=== PATIENT | female | born 1945 ===

== ENCOUNTER → 2018-03-07 | Day surgery (SDC) | payer BC ==
[2018-02-14 10:25] VITALS: Ht 165.1 cm; Wt 93.2 kg
[~2018-03-07] VITALS: Ht 165.1 cm; Wt 93.2 kg
[~2018-03-07] MED LIST: 500ML BSS 0.3ML EPI 1:1000PF IRRIG ONE; ACETAMINOPHEN 325 MG TAB PO PRN; AMVISC PLUS 0.8ML SYRINGE INT OCU ONE; ASPCH81X PO; ATROPINE SULFATE 0.1 MG/ML 5ML SYR IV PRN; BSS FLUSH ONE; EpHEDrine SULFATE INJ 50 MG/ML AMP IV PRN; EpINEphrine INJ 1MG/ML AMP 1 MG/ML AMP ONE; FENTANYL CITRATE INJ 50 MCG/1 ML 2 ML VIAL IV PRN; FLUMAZENIL 0.1 MG/1 ML 10 ML VIAL IV PRN; HYDROmorphone INJ 2 MG/ML SYR/VIAL IV PRN; LABETALOL HCL IV 5 MG/ML 20ML IV PRN; LACTATED RINGER'S 1000ML 500 ML IV SCH; LIDOCAINE 3.5% OPH GEL PER APPLICATION CHARGE ONE; LIDOCAINE HCL 1% MPF 2 ML VIAL ONE; MAGN250T3 PO; MEPERIDINE HCL 25 MG/ML CARP IV PRN; MIDAZOLAM HCL 1 MG/ML 2ML VIAL ONE; MULTTAB58 PO; NALOXONE HCL 0.4 MG/1 ML VIAL/CARP IV PRN; OCUCOAT 1 ML SOLN IO ONE; OMEG10007 PO; ONDANSETRON INJ 2 MG/ML 2 ML VIAL IV PRN; PHENYLEPHRINE 100MCG/ML 5ML SYR IV PRN; POVIDONE-IODINE OP SOLN 30 ML BTL ONE; PRAV40TA PO; PRLSR20 PO; PROPARACAINE 0.5% OP SOLN PER DROP CHARGE OPR SCH; TOBRAMYCIN/DEXAMETHASONE OPH OINT PER APPLN CHARGE ONE; VALS160T58 PO
[2018-03-07] MEDS: PHENYLEPHRINE HCL 2.5% OP SOLN PER DROP CHARGE OPR SCH ×2 (10:52→10:57)
[2018-03-07] MEDS: TROPICAMIDE 1% OP SOLN PER DROP CHARGE OPR SCH ×2 (10:53→10:58)
[2018-03-07] MEDS: CYCLOPENTOLATE HCL 1% OP SOLN PER DROP CHARGE OPR SCH ×2 (10:54→10:59)
[2018-03-07] MEDS: KETOROLAC 0.5% OP SOLN PER DROP CHARGE OPR SCH ×2 (10:55→11:00)
[2018-03-07] MEDS: GATIFLOXACIN OP SOLN PER DROP CHARGE OPR SCH ×2 (10:56→11:06)
--- NOTE | 2018-03-07 11:01 | History & Physical Bridge - [place] ---
H&P Re-Evaluation Bridge Note: I have examined the patient, reviewed the History & Physical and in the interval since the performance of the History & Physical I have noted the following changes of clinical significance: No changes noted
--- NOTE | 2018-03-07 11:30 | [facility] Operative Report ---
Operative Report Date of Service March 07, 2018. Operative Report 1. PREOPERATIVE DIAGNOSIS: Cataract of the right eye. 2. POSTOPERATIVE DIAGNOSIS: Same. 3. PROCEDURE: Phacoemulsification with intraocular lens implantation of the right eye. SURGEON: Dr. Truman Swann. ANESTHESIA: Topical Lidocaine gel, 1% Non- Preserved intracameral Lidocaine, and monitored intravenous sedation. INDICATIONS FOR THE PROCEDURE: The patient is a 72 - year-old female with a history of cataract of the right eye causing significant visual impairment. The details of the proposed procedure were explained to the patient who asked appropriate questions and following discussion of all risks, benefits and alternatives agreed to have the procedure done. 4. OPERATION AND FINDINGS: DESCRIPTION OF PROCEDURE: After informed consent was obtained, the patient was brought to the Operating Room at the [facility]. The patient was placed in a supine position and then the right eye was prepped and draped in the usual sterile fashion for intraocular surgery. A drop of topical Lidocaine gel was placed in the operative eye. A wire lid speculum was then placed in the fornices. A corneal paracentesis was then created temporally. The Non-Preserved Lidocaine was then instilled into the anterior chamber. The anterior chamber was then pressurized with viscoelastic. A 2.0 mm clear corneal incision was then created temporally. A cystotome was inserted into the anterior chamber and used to create a tear in the anterior lens capsule. This capsular tear was then used to create a small flap and the flap was dragged in a counterclockwise direction in order to create a continuous curvilinear capsulorrhexis. Hydrodissection was accomplished with balanced salt solution. Phacoemulsification of the lens nucleus was then performed in a standard rlomoj-orq-[id number] technique. The phaco time was 18 seconds with an average power of 9 %. The remaining cortical material was removed using irrigation aspiration. The capsular bag was then filled with viscoelastic. A B[employer]ch [employer] Lomb MI60L +22.0 diopters lens was then loaded into the injector and injected into the capsular bag. The remaining viscoelastic was removed with the irrigation aspiration handpiece. The wound was hydrated and then checked and found to be watertight. The intraocular pressure was checked and found to be adequate. The wire lid speculum was removed and the patient's face was cleaned and dried. TobraDex ointment was placed in the inferior fornix. The patient was discharged to the Recovery Room having tolerated the procedure well. There were no complications. The patient will be seen tomorrow in the office for follow-up. I attest to the content of the Intraoperative Record and any orders documented therein. Any exceptions are noted below.
--- NOTE | 2018-03-07 11:31 | Discharge Instructions-SurgCtr ---
Discharge Instructions Date of Service March 07, 2018. Visit Reason for Visit: Cataract Right Eye Discharge Discharge Diagnosis / Problem: cataract Discharge Goals Goal(s): Improve function Activity Recommendations Activity Limitations: per Instructions/Follow-up section Anesthesia . Post Anesthesia Instructions: If you have had General Anesthesia or IV Sedation: * Do not drive today. * Resume driving when surgeon permits. * Do not make important decisions or sign legal documents today. * Call surgeon for: 1. Temperature elevations greater than 101 degrees F. 2. Uncontrollable pain. 3. Excessive bleeding. 4. Persistent nausea and vomiting. 5. Medication intolerance (nausea, vomiting or rash). * For nausea and vomiting use only clear liquids such as: tea, soda, bouillon until nausea subsides, then gradually increase diet as tolerated. * If you have any concerns or questions, call your surgeon's office. If physician is unavailable and it is an emergency, call 911 or go to the nearest emergency room. . Diet Recommendations Home Diet: resume previous diet Procedures Procedures Performed: Right Cataract Phacoemulsification With Intraocular Lens Implant Pending Studies Studies pending at discharge: no Medical Emergencies . Who to Call and When: Medical Emergencies: If at any time you feel your situation is an emergency, please call 911 immediately. . Non-Emergent Contact Non-Emergency issues call your: Tax Technician . . "Provider Documentation" section prepared by Truman Swann. .
--- NOTE | 2018-03-07 11:48 | Anesthesia Progress Nt - [facility] ---
Anesthesia Post Op Note Date & Time March 07, 2018 at 11:48 Vital Signs Pain Intensity: 0 Vital Signs Past 12 Hours Date Time Temp Pulse Resp B/P (MAP) Pulse Ox O2 Delivery O2 Flow Rate FiO2 03/07/18 11:33 36.4 80 16 127/81 (96) 97 Room Air 03/07/18 10:44 36.6 90 152/94 (113) 97 Room Air Notes Mental Status: alert / awake / arousable, participated in evaluation Pt Amnestic to Procedure: Yes Nausea / Vomiting: adequately controlled Pain: adequately controlled Airway Patency, RR, SpO2: stable & adequate BP & HR: stable & adequate Hydration State: stable & adequate Anesthetic Complications: no major complications apparent
[2018-03-07 11:58] VITALS: BP 131/82; PULSE 78; O2SAT 99
== END | disposition home or self-care (01) ==
LOC: X.SURG 10:34
PROVIDERS: ATTEND Ophthalmology
DX: H26.9 Unspecified cataract (principal); I10 Essential (primary) hypertension; K21.9 Gastro-esophageal reflux disease without esophagitis; M19.90 Unspecified osteoarthritis, unspecified site; E66.9 Obesity, unspecified; Z68.34 Body mass index [BMI] 34.0-34.9, adult

== ENCOUNTER 2019-04-20 06:33 | Inpatient (IN) ==
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
--- NOTE | 2019-03-26 13:32 | PAT Medication Instructions ---
Medication Instructions Date of Service March 26, 2019 Home Medications aspirin [Aspir-81] 81 mg PO QPM multivitamin 0.5 tab PO BID omega 0-lsi-jtr-fish oil [Fish Oil] 1 cap PO QAM pravastatin 40 mg PO HS valsartan-hydrochlorothiazide [Diovan HCT] 1 tab PO QAM ASK your surgeon for instructions aspirin [Aspir-81] 81 mg PO QPM STOP taking 2 weeks before surgery omega 9-rzq-yxd-fish oil [Fish Oil] 1 cap PO QAM DO NOT take the morning of surgery multivitamin 0.5 tab PO BID valsartan-hydrochlorothiazide [Diovan HCT] 1 tab PO QAM Take morning of surgery NOTHING TO EAT OR DRINK AFTER MIDNIGHT Take evening before surgery multivitamin 0.5 tab PO BID pravastatin 40 mg PO HS Other Notes If you have any questions please call us at [phone] or [phone] or [phone] or [phone]
--- NOTE | 2019-03-26 14:27 | XRay Report ---
XR chest Pre-admission PA/Lat CLINICAL HISTORY: Preoperative evaluation. COMPARISON STUDY: No previous studies for comparison. FINDINGS: The lung volumes are normal. No pneumothorax or pleural effusion is noted. There is no cons olidation or evidence for pulmonary edema. Cardiac size is normal. A moderate sized hiatal hernia is present. Otherwise, mediastinal contours are normal. IMPRESSION: 1. No acute cardiopulmonary findings. 2. Moderate sized hiatal hernia. Electronically signed by: Kleber Foss M.D. 03/26/2019 2:25 PM
[2019-03-26 14:32] LABS: Basophils # (auto) 0.02 K/uL (0-0.2); Basophils % (auto) 0.3 %; Eosinophils # (auto) 0.16 K/uL (0-0.5); Eosinophils % (auto) 2.4 %; Hematocrit (blood only) 39.1 % (37-47); Hemoglobin 13.1 g/dL (12.0-16.0); Immature Granulocytes # (auto) 0.01 K/uL (0.00-0.02); Immature Granulocytes % (auto) 0.2 %; Lymphocytes # (auto) 1.93 K/uL (1.2-3.4); Lymphocytes % (auto) 29.2 %; Mean Corpuscular Hgb Conc 33.5 g/dL (32-36); Mean Corpuscular Volume 91.8 fL (80-100); Mean Platelet Volume 9.8 fL (7.4-10.4); Monocytes # (auto) 0.55 K/uL (0.11-0.59); Monocytes % (auto) 8.3 %; Neutrophils # (auto) 3.95 K/uL (1.4-6.5); Neutrophils % (auto) 59.6 %; Platelet Count 226 K/uL (130-400); RDW Coefficient of Variation 13.6 % (11.5-14.5); RDW Standard Deviation 45.4 fL (36.4-46.3); Red Blood Count 4.26 M/uL (4.2-5.4); White Blood Count 6.62 K/uL (4.8-10.8)
[2019-03-26 14:45] LABS: Appearance Urine Clear (Clear); Bacteria Urine Automated Negative (Negative); Bilirubin Urine Negative (Negative); Blood Urine Negative (Negative); Color Urine Yellow; Glucose Urine UA Negative (Negative); Ketones Urine Negative (Negative); Leukocyte Esterase Urine Trace (Negative); Nitrite Urine Negative (Negative); Protein Urine Negative (Negative); RBC Urine Automated 0-4 /hpf (0-4); Specific Gravity Urine 1.019 (1.000-1.030); Urobilinogen Urine Negative (Negative)
[2019-03-26 14:45] LABS: Partial Thromboplastin Ratio 0.9; Partial Thromboplastin Time 25.2 Seconds (21.0-31.0); Prothrombin Time 10.6 Seconds (9.0-12.0)
[2019-03-27 06:03] LABS: Estimated Average Glucose 117 mg/dl; Hemoglobin A1C 5.7 % (4.5-5.6)
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
[~2019-04-20 06:33] MED LIST changes: -500ML BSS 0.3ML EPI 1:1000PF IRRIG ONE; -ACETAMINOPHEN 325 MG TAB PO PRN; -AMVISC PLUS 0.8ML SYRINGE INT OCU ONE; -ASPCH81X PO; -ATROPINE SULFATE 0.1 MG/ML 5ML SYR IV PRN; -BSS FLUSH ONE; +CEFAZOLIN 2000MG 2,000 MG/15 ML SYR IV SCH; -EpHEDrine SULFATE INJ 50 MG/ML AMP IV PRN; -EpINEphrine INJ 1MG/ML AMP 1 MG/ML AMP ONE; -FENTANYL CITRATE INJ 50 MCG/1 ML 2 ML VIAL IV PRN; -FLUMAZENIL 0.1 MG/1 ML 10 ML VIAL IV PRN; -HYDROmorphone INJ 2 MG/ML SYR/VIAL IV PRN; -LABETALOL HCL IV 5 MG/ML 20ML IV PRN; -LACTATED RINGER'S 1000ML 500 ML IV SCH; -LIDOCAINE 3.5% OPH GEL PER APPLICATION CHARGE ONE; -LIDOCAINE HCL 1% MPF 2 ML VIAL ONE; -MAGN250T3 PO; -MEPERIDINE HCL 25 MG/ML CARP IV PRN; -MIDAZOLAM HCL 1 MG/ML 2ML VIAL ONE; -MULTTAB58 PO; -NALOXONE HCL 0.4 MG/1 ML VIAL/CARP IV PRN; -OCUCOAT 1 ML SOLN IO ONE; -OMEG10007 PO; -ONDANSETRON INJ 2 MG/ML 2 ML VIAL IV PRN; -PHENYLEPHRINE 100MCG/ML 5ML SYR IV PRN; -POVIDONE-IODINE OP SOLN 30 ML BTL ONE; -PRAV40TA PO; -PRLSR20 PO; -PROPARACAINE 0.5% OP SOLN PER DROP CHARGE OPR SCH; +ROPIVACAINE 0.5% HCL/PF 150 MG, BUPIVACAINE 0.5% MPF 30 ML, EPINEPHrine 30MG/30ML (OR U... INFIL SCH; -TOBRAMYCIN/DEXAMETHASONE OPH OINT PER APPLN CHARGE ONE; +TRANEXAMIC ACID 1,000 MG **IV Intra-op IV SCH; +TRANEXAMIC ACID 1,000 MG **IV Pre-op IV SCH; -VALS160T58 PO
[2019-04-20] MEDS ORDERED: BUPIVACAINE 0.5 % 5 MG/1 ML PF 10ML VIAL ONE (07:30)
[2019-04-20] MEDS ORDERED: ROPIVACAINE 0.5% 5 MG/ML 30 ML VIAL ONE (07:30)
[2019-04-20] MEDS: LR 500ML BOLUS, THEN 15ML/HR IV SCH (07:38)
[2019-04-20] MEDS ORDERED: ACETAMINOPHEN 500 MG TAB ONE (07:40)
[2019-04-20] MEDS ORDERED: FAMOTIDINE 20 MG TAB ONE (07:40)
[2019-04-20] MEDS ORDERED: dexAMETHasone 4 MG TAB PO ONE (07:40)
[2019-04-20] MEDS ORDERED: METOCLOPRAMIDE HCL 10 MG TABLET ONE (07:41)
[2019-04-20] MEDS ORDERED: GABAPENTIN 300 MG CAP ONE (07:41)
[2019-04-20] MEDS ORDERED: OXYCODONE HCL 10 MG TABCR (OXYCONTIN) ONE (07:42)
[2019-04-20] MEDS ORDERED: ePHEDrine sulfate 50 MG/ML AMP IV PRN (08:43)
[2019-04-20] MEDS ORDERED: HYDROmorphone INJ 1 MG/ML SYRINGE IV PRN (08:43)
[2019-04-20] MEDS ORDERED: ATROPINE SULFATE 0.1 MG/ML 10ML SYR IV PRN (08:43)
--- NOTE | 2019-04-20 08:43 | History & Physical Bridge Note ---
Date of Service April 20, 2019 History & Physical Bridge Note I have examined the patient, reviewed the History & Physical and in the interval since the performance of the History & Physical I have noted the following changes of clinical significance: no changes noted
[2019-04-20] MEDS ORDERED: MIDAZOLAM HCL 1 MG/ML 2ML VIAL ONE (08:47)
[2019-04-20] MEDS ORDERED: BACITRACIN INJ 50,000 UNIT VIAL ONE (09:43)
[2019-04-20] MEDS ORDERED: fentaNYL citrate 100 MCG/2 ML VIAL ONE ×4 (09:44→11:28)
[2019-04-20] MEDS ORDERED: HYDROmorphone INJ 2 MG/ML SYR/VIAL ONE ×2 (10:27→11:47)
[2019-04-20] MEDS ORDERED: KETOROLAC 30 MG/ML VIAL ONE (10:28)
[2019-04-20] MEDS ORDERED: LIDOCAINE HCL 2% 2 ML VIAL/AMP(20MG/ML) INFIL ONE (10:28)
[2019-04-20] MEDS ORDERED: raNITIdine HCl 25 MG/ML VIAL IV ONE (10:28)
[2019-04-20] MEDS ORDERED: PROPOFOL IV EMULSION 10 MG/ML 20 ML VIAL IV ONE (10:28)
[2019-04-20] MEDS ORDERED: DEXAMETHASONE SOD INJ 4 MG/ML VIAL ONE (10:28)
[2019-04-20] MEDS ORDERED: ePHEDrine sulfate 50 MG/ML SYR ONE (10:28)
[2019-04-20] MEDS ORDERED: ONDANSETRON INJ 2 MG/ML 2 ML VIAL ONE (10:28)
[2019-04-20] MEDS ORDERED: LABETALOL HCL IV 5 MG/ML 20ML IV ONE (10:43)
--- NOTE | 2019-04-20 11:14 | Operative Report ---
Post Operative Report Pre & Post Diagnosis Operation Date: 04/20/19 09:00 Pre-Op Diagnosis: Osteoarthritis, Right Knee Post-Op Diagnosis: Osteoarthritis, Right Knee Procedure Operation Date: 04/20/19 09:00 Actual Procedures p Right Total Knee Arthroplasty(Right) - Farhan Russo MD Surgeon Farhan Russo MD Director Workers Compensation Adolph Vickers PA-C Estimated Blood Loss 20 Findings Consistent with Post-Op Diagnosis Specimens Bone and tissue Drains 2 Hemovac Anesthesia Type General Regional Complications none Disposition Accompanied Patient To Recovery: No Disposition: Recovery Room Indications The patient is a 73-year-old female long-standing arthritic change the right knee. She is [id number] medial compartment. She is failed conservative measures including injection, anti-inflammatories, rehab. She wishes to proceed with a right total knee arthroplasty. Description of Procedure Risks benefits and alternatives of surgery including but not limited to infection, DVT, pain, stiffness, need for surgery, damage to blood vessels, damage to nerves or risks of anesthesia were discussed with the patient and they wished to proceed. The patient was identified and the laterality was confirmed and marked. They received a preoperative antibiotic as well as a spinal anesthetic and an abductor canal block. A well-padded tourniquet was applied and then the limb was prepped and draped in standard manner with ChloraPrep. The limb was exsanguinated and the tourniquet was inflated. I made a standard anterior incision. I sharply incised the skin then utilized Bovie electrocautery to achieve hemostasis. I made a medial parapatellar arthrotomy and mobilized the patella laterally. I then excised the anterior horns of the medial and lateral meniscus as well as the infrapatellar fat pad. I elevated a portion of the MCL off of the tibia. I then pinned into place a patient-matched distal femoral cutting guide and made my distal femoral resection. I then pinned into place the 5 in 1 femoral cutting guide. I made my anterior, posterior and chamfer cuts. I then excised the cruciates and the remaining portions of the menisci. I then pinned into place a patient- matched tibial cutting guide and made my tibial resection. I then pinned into place the tibial plate a utilizing alignment lidia to confirm rotation. I then cut for the post. Utilizing a lamina equipment processor and I then removed posterior osteophytes off the femur. I then placed a trial femur into position and cut for the trochlear component. I then sequentially trialed to size the polyethylene until there was good soft tissue balancing and range of motion. I then prepared the patella with a freehand cut utilizing sagittal saw. I sized and drilled for the patella. There was good tracking to the patella no lateral release was needed. All the trial components were removed. The deep tissues were anesthetized with an ortho mix solution. Then with Simplex HV with gentamicin cement, I cemented my definitive components. Definitive components, Huber and Nephew Stephan 2: Femur 5 Tibia 3 Poly 9 Patella 32 oval A betadine soak was performed. A deep drain was placed. The arthrotomy was closed with interrupted #1 Vicryl suture subcutaneous tissue was closed with interrupted 2-0 Vicryl suture. The skin was closed with with sergio. An Acticoat and Irasema dressing were placed. Sterile dressings were applied. All needle and sponge counts were correct at the end of the procedure patient was transferred to the PACU in stable condition without apparent complication. The PA-C was necessary for assistance with procedure for assistance in positioning, prepping, draping, retraction and closure. I attest to the content of the Intraoperative Record and any orders documented therein. Any exceptions are noted below.
--- NOTE | 2019-04-20 12:51 | XRay Report ---
XR knee RT 2V routine CLINICAL HISTORY: Surgical Post Op COMPARISON: None. DISCUSSION: Anatomic alignment posttotal right knee arthroplasty. Good contact between the prosthetic and underlying bone. Surgical drains are in position. Expected soft tissue postoperative changes. IMPRESSION: Anatomic alignment posttotal right knee arthroplasty. The above report was generated using voice recognition software. It may contain grammatical, syntax or spelling errors. Electronically signed by: Ketan Velasquez M.D. 04/20/2019 12:50 PM
[2019-04-20] MEDS ORDERED: ONDANSETRON INJ 2 MG/ML 2 ML VIAL IV PRN (13:04)
[2019-04-20] MEDS ORDERED: BISACODYL 10 MG SUPP PR PRN (13:04)
[2019-04-20] MEDS ORDERED: OXYCODONE HCL IR 5 MG TAB (IMMEDIATE RELEASE) PO PRN (13:04)
[2019-04-20] MEDS ORDERED: METOCLOPRAMIDE HCL INJ 5 MG/ML 2 ML VIAL IV PRN (13:04)
[2019-04-20] MEDS ORDERED: NALOXONE HCL 0.4 MG/1 ML VIAL/CARP IV PRN (13:04)
[2019-04-20] MEDS ORDERED: HYDROmorphone INJ 0.5 MG/0.5 ML SYR IV PRN (13:04)
[2019-04-20] MEDS ORDERED: MAGNESIUM HYDROXIDE SUSP 30 ML UDC PO PRN (13:04)
[2019-04-20] MEDS: ACETAMINOPHEN 500 MG TAB PO SCH ×2 (14:43→21:13)
[2019-04-20] MEDS: SODIUM CHLORIDE 0.9% 1000ML 1,000 ML IV SCH ×2 (14:43→23:42)
--- NOTE | 2019-04-20 14:54 | Anesthesiology Progress Note ---
Date of Service April 20, 2019 Anesthesia Post Procedure Vital Signs Vital Signs: Temp Pulse Resp BP Pulse Ox 04/20/19 13:59 36.5 C 66 16 124/77 96 04/20/19 13:33 36.3 C L 69 18 128/80 100 04/20/19 13:00 36.4 C L 76 16 132/80 95 04/20/19 12:50 74 18 117/72 99 04/20/19 12:35 36.4 C L 78 18 136/74 99 04/20/19 12:25 79 18 129/75 98 04/20/19 12:15 74 14 139/76 100 04/20/19 12:05 36.5 C 84 12 143/79 H 98 04/20/19 07:13 36.6 C 72 18 163/77 H 97 Transfer of Care Handoff Completed per policy Notes Mental Status: alert / awake / arousable Patient Amnestic to Procedure: Yes Nausea / Vomiting: adequately controlled Pain: adequately controlled Airway Patency, RR, SpO2: stable & adequate BP & HR: stable & adequate Hydration State: stable & adequate Anesthetic Complications: no major complications apparent and Pt Satisfied with anesthetic care
[2019-04-20] MEDS: CEFAZOLIN 2000MG 2,000 MG/15 ML SYR IV SCH (18:35)
[2019-04-20] MEDS: SENNA 8.6 MG TAB PO SCH (21:11)
[2019-04-20] MEDS: ASPIRIN 81 MG ECTAB PO SCH (21:11)
[2019-04-20] MEDS: DOCUSATE SODIUM 100 MG CAP PO SCH (21:11)
[2019-04-20] MEDS: MULTIVITAMIN TAB PO SCH (21:12)
[2019-04-20] MEDS: CeleBREX 200 MG CAP PO SCH (21:13)
[2019-04-20] MEDS: PRAVASTATIN SOD 40 MG TAB PO SCH (21:13)
[2019-04-21] MEDS: CEFAZOLIN 2000MG 2,000 MG/15 ML SYR IV SCH (02:21)
[2019-04-21] MEDS: ACETAMINOPHEN 500 MG TAB PO SCH ×3 (05:54→21:09)
[2019-04-21 06:04] LABS: Hematocrit (blood only) 33.5 % (37-47); Hemoglobin 11.2 g/dL (12.0-16.0); Mean Corpuscular Hgb Conc 33.4 g/dL (32-36); Mean Corpuscular Volume 91.5 fL (80-100); Mean Platelet Volume 9.7 fL (7.4-10.4); Platelet Count 181 K/uL (130-400); RDW Coefficient of Variation 13.2 % (11.5-14.5); RDW Standard Deviation 44.1 fL (36.4-46.3); Red Blood Count 3.66 M/uL (4.2-5.4)
[2019-04-21 06:43] LABS: BUN Creatinine Ratio 15.7 (10-20); Calcium 8.8 mg/dl (8.5-10.1); Est GFR (African American) 58.3; Est GFR (Non-African American) 50.3; Potassium 3.9 mmol/L (3.5-5.1)
[2019-04-21] MEDS: LR 500ML BOLUS, THEN 15ML/HR IV SCH (06:56)
[2019-04-21] MEDS: hydroCHLOROthiazide 25 MG TAB PO SCH (08:15)
[2019-04-21] MEDS: MULTIVITAMIN TAB PO SCH ×2 (08:16→21:10)
[2019-04-21] MEDS: VALSARTAN 80 MG TAB PO SCH (08:17)
[2019-04-21] MEDS: CeleBREX 200 MG CAP PO SCH ×2 (08:17→21:09)
[2019-04-21] MEDS: ASPIRIN 81 MG ECTAB PO SCH ×2 (08:18→21:09)
[2019-04-21] MEDS: DOCUSATE SODIUM 100 MG CAP PO SCH ×2 (08:18→19:19)
--- NOTE | 2019-04-21 08:34 | Orthopedic Progress Note ---
Date of Service April 21, 2019 Assessment & Plan (1) Primary osteoarthritis of right knee: POD #1 s/p right TKA PT/OT DVT prophylaxis--ASA and TEDs D/C planning--home with OPPT, possibly tomorrow. (2) Foot drop, right: known--at least 2 year hx. May consider MAFO for the RLE upon d/c. Subjective Doing well. Pain controlled in the right knee. Denies CP, SOB, LH. No complaints today. Physical Exam Constitutional: WD/WN, vitals as above Musculoskeletal: Knee: + surgical incision (Right knee: AGUSTINA dressing in place and functioning. BANG bandage in place. ) and + surgical drain present (~375 cc total from hemovac); knee normal to inspection and no deformity Neurologic: moves all extremities (NV intact RLE. Known foot drop on the right. Weak dorsiflexion intact.) Psychiatric: A+Ox3, euthymic affect Results & Data Vital Signs (Past 12 Hours) Vital Signs Temp Pulse Resp BP Pulse Ox 04/21/19 07:20 36.7 C 75 18 125/74 97 04/21/19 03:35 36.7 C 86 16 112/65 97 04/20/19 23:07 36.5 C 75 16 113/62 96
[2019-04-21] MEDS ORDERED: VALSARTAN/HCTZ 160/12.5MG TAB PO SCH (09:00)
[2019-04-21] MEDS ORDERED: MULTIVITAMIN TAB PO SCH (09:00)
--- NOTE | 2019-04-21 11:42 | Anesthesiology Progress Note ---
Date of Service April 21, 2019 Anesthesia Post Procedure Vital Signs Vital Signs: Temp Pulse Resp BP Pulse Ox 04/21/19 07:20 36.7 C 75 18 125/74 97 04/21/19 03:35 36.7 C 86 16 112/65 97 04/20/19 23:07 36.5 C 75 16 113/62 96 04/20/19 20:29 36.6 C 75 16 120/78 97 04/20/19 16:00 36.5 C 75 16 115/78 97 04/20/19 15:00 36.5 C 68 17 122/78 94 04/20/19 13:59 36.5 C 66 16 124/77 96 04/20/19 13:33 36.3 C L 69 18 128/80 100 04/20/19 13:00 36.4 C L 76 16 132/80 95 04/20/19 12:50 74 18 117/72 99 04/20/19 12:35 36.4 C L 78 18 136/74 99 04/20/19 12:25 79 18 129/75 98 04/20/19 12:15 74 14 139/76 100 04/20/19 12:05 36.5 C 84 12 143/79 H 98 Notes Mental Status: alert / awake / arousable and participated in evaluation Patient Amnestic to Procedure: Yes Nausea / Vomiting: see Notes below Pain: adequately controlled Airway Patency, RR, SpO2: stable & adequate BP & HR: stable & adequate Hydration State: stable & adequate Anesthetic Complications: no major complications apparent and Pt Satisfied with anesthetic care
[2019-04-21] MEDS: SENNA 8.6 MG TAB PO SCH (19:19)
[2019-04-21] MEDS: PRAVASTATIN SOD 40 MG TAB PO SCH (21:09)
[2019-04-22] MEDS: LR 500ML BOLUS, THEN 15ML/HR IV SCH (05:29)
[2019-04-22] MEDS: ACETAMINOPHEN 500 MG TAB PO SCH (05:36)
[2019-04-22] MEDS: MULTIVITAMIN TAB PO SCH (07:39)
[2019-04-22] MEDS: CeleBREX 200 MG CAP PO SCH (07:39)
[2019-04-22] MEDS: ASPIRIN 81 MG ECTAB PO SCH (07:39)
[2019-04-22] MEDS: hydroCHLOROthiazide 25 MG TAB PO SCH (07:40)
[2019-04-22] MEDS: VALSARTAN 80 MG TAB PO SCH (07:40)
[2019-04-22] MEDS: DOCUSATE SODIUM 100 MG CAP PO SCH (07:41)
--- NOTE | 2019-04-22 07:59 | Orthopedic Progress Note ---
Date of Service April 22, 2019 Assessment & Plan (1) Primary osteoarthritis of right knee: POD #2 s/p right TKA PT/OT DVT prophylaxis--ASA and TEDs D/C planning--home with OPPT today (2) Foot drop, right: known--at least 2 year hx. May consider MAFO for the RLE upon d/c. Subjective Doing well. Pain controlled in the right knee. States the knee is a little more sore today but overall doing well. Denies CP, SOB, LH. No complaints today. Physical Exam Constitutional: WD/WN, vitals as above Musculoskeletal: Knee: + surgical incision (Right knee: AGUSTINA dressing in place and functioning. BANG bandage in place. ); knee normal to inspection, no deformity and no surgical drain present (hemovac has been removed) Neurologic: moves all extremities (NV intact RLE. Known foot drop on the right. Weak dorsiflexion intact.) Psychiatric: A+Ox3, euthymic affect Results & Data Vital Signs (Past 12 Hours) Vital Signs Temp Pulse Resp BP Pulse Ox 04/22/19 06:25 36.7 C 72 16 129/82 99 04/21/19 22:52 36.7 C 77 16 126/74 97
--- NOTE | 2019-04-22 13:12 | Discharge Summary ---
Date of Service April 22, 2019 Admission HPI Per Admitting Provider Patient is a 73 year old female with PMHx significant for HTN, high cholesterol, asthma, hx of TIA who presents with chronic bilateral knee pain. She has failed conservative measures including cortisone injections and anti-inflammatory medications. Only got a few weeks relief from her last set of injections. Her pain is interfering with her daily activities and would like to proceed with surgical intervention. She is scheduled for right total knee arthroplasty on 04/20/19. Patient denies headaches, sweats, fevers, chills, double vision, blurred vision, cough, sore throat, dysphagia, chest pain, sob, wheezing, n/v/ d/c, numbness, tingling, fatigue, urinary symptoms, mood disorders. ROS positive for bilateral pain and stiffness. Admission Exam Per Admitting Provider Constitutional: well developed and well nourished; no acute distress Eyes: PERRL, conjunctivae normal, anicteric sclerae ENMT: external ear and nose normal, oropharynx normal Neck: trachea midline, no thyromegaly Respiratory: normal respiratory effort, lungs clear to auscultation Cardiovascular: RRR, no murmur, no edema Musculoskeletal: Right knee: Mild effusion, ROM 0-130. Crepitus noted with ROM. Stable to valgus and varus stress, positive McMurrya's. Tenderness medial joint line. Skin: no rashes, warm and dry Neurologic: patellar DTR's 2+ bilat, sensation intact Psychiatric: A+Ox3, euthymic affect Principal Diagnosis Right knee osteoarthritis Discharge Exam Constitutional well developed and well nourished; no acute distress Eyes PERRL, conjunctivae normal, anicteric sclerae ENMT external ear and nose normal, oropharynx normal Neck trachea midline, no thyromegaly Respiratory normal respiratory effort, lungs clear to auscultation Cardiovascular RRR, no murmur, no edema Skin no rashes, warm and dry Neurologic patellar DTR's 2+ bilat, sensation intact Psychiatric A+Ox3, euthymic affect Discharge Data Allergies Allergy/AdvReac Type Severity Reaction Status Date / Time No Known Drug Allergies Allergy Unknown . Verified 04/20/19 07:11 ragweed pollen Allergy Unknown DIFFICULT Verified 04/20/19 07:11 BREATHING Consultations 04/20/19 13:04 Consult Case Management - Discharge Planning Routine Procedures Performed Operation Date: 04/20/19 09:00 Actual Procedures p Right Total Knee Arthroplasty(Right) - Farhan Russo MD Ordered Studies 04/20/19 05:00 US - OR guided needle placemen Routine Hospital Course (1) Primary osteoarthritis of right knee: Patient presented for same day admission following right total knee arthroplasty on 04/20/19. She tolerated procedure well. The Patient had an uneventful hospital course. Post-operatively, her activity was progressed and well tolerated. They participated in PT with ambulation distance of 315 feet. ROM of operative knee reached 95 degrees. Labs remained stable- lowest h emoglobin recorded: 11.2. Pain controlled on oral medications. On POD#1 patient was noted to have a mild foot drop, per patient this has been chronic and present for about 2 years. Foot drop is at baseline. Please refer to daily progress notes and PT notes for complete details. After exam on 04/22/19, patient was felt to be stable for discharge home with plans on attending outpatient physical therapy. Patient will f/u in the office in about 2 weeks for further evaluation including x-rays and incision check, sooner if having any issues or concerns. Lab Results 03/26/19 03/26/19 03/26/19 Range/Units 14:07 14:07 14:07 WBC 6.62 (4.8-10.8) K/uL RBC 4.26 (4.2-5.4) M/uL Hgb 13.1 (12.0-16.0) g/dL Hct 39.1 (37-47) % MCV 91.8 (80-100) fL MCH 30.8 (25-34) pg MCHC 33.5 (32-36) g/dL RDW Std Deviation 45.4 (36.4-46.3) fL RDW Coeff of Berenice 13.6 (11.5-14.5) % Plt Count 226 (130-400) K/uL MPV 9.8 (7.4-10.4) fL Immature Gran % (Auto) 0.2 % Neut % (Auto) 59.6 % Lymph % (Auto) 29.2 % [place] % (Auto) 8.3 % Eos % (Auto) 2.4 % Baso % (Auto) 0.3 % Immature Gran # (Auto) 0.01 (0.00-0.02) K/uL Neut # (Auto) 3.95 (1.4-6.5) K/uL Lymph # (Auto) 1.93 (1.2-3.4) K/uL [place] # (Auto) 0.55 (0.11-0.59) K/uL Eos # (Auto) 0.16 (0-0.5) K/uL Baso # (Auto) 0.02 (0-0.2) K/uL PT 10.6 (9.0-12.0) Seconds INR 1.0 (0.9-1.1) APTT 25.2 (21.0-31.0) Seconds PTT Ratio 0.9 Sodium (136-145) mmol/L Potassium (3.5-5.1) mmol/L Chloride (98-107) mmol/L Carbon Dioxide (21-32) mmol/L Anion Gap (3-11) BUN (7-18) mg/dl Creatinine (0.6-1.2) mg/dl Est Cr Clr Drug Dosing ml/min Est GFR ( Amer) Est GFR (Non-Af Amer) BUN/Creatinine Ratio (10-20) Glucose (70-99) mg/dl Estimat Average Glucose mg/dl Hemoglobin A1c (4.5-5.6) % Calcium (8.5-10.1) mg/dl Albumin 3.6 (3.4-5.0) gm/dl Urine Color Urine Appearance (Clear) Urine pH (4.5-7.5) Ur Specific [place] (1.000-1.030) Urine Protein (Negative) Urine Glucose (UA) (Negative) Urine Ketones (Negative) Urine Blood (Negative) Urine Nitrite (Negative) Urine Bilirubin (Negative) Urine Urobilinogen (Negative) Ur Leukocyte Esterase (Negative) Urine WBC (Auto) (0-5) /hpf Urine RBC (Auto) (0-4) /hpf U Hyaline Cast (Auto) (0-5) /lpf U Epithel Cells (Auto) (0-5) /lpf Urine Bacteria (Auto) (Negative) Blood Type Antibody Screen 03/26/19 03/26/19 03/26/19 Range/Units 14:07 14:07 Unknown WBC (4.8-10.8) K/uL RBC (4.2-5.4) M/uL Hgb (12.0-16.0) g/dL Hct (37-47) % MCV (80-100) fL MCH (25-34) pg MCHC (32-36) g/dL RDW Std Deviation (36.4-46.3) fL RDW Coeff of Berenice (11.5-14.5) % Plt Count (130-400) K/uL MPV (7.4-10.4) fL Immature Gran % (Auto) % Neut % (Auto) % Lymph % (Auto) % [place] % (Auto) % Eos % (Auto) % Baso % (Auto) % Immature Gran # (Auto) (0.00-0.02) K/uL Neut # (Auto) (1.4-6.5) K/uL Lymph # (Auto) (1.2-3.4) K/uL [place] # (Auto) (0.11-0.59) K/uL Eos # (Auto) (0-0.5) K/uL Baso # (Auto) (0-0.2) K/uL PT (9.0-12.0) Seconds INR (0.9-1.1) APTT (21.0-31.0) Seconds PTT Ratio Sodium (136-145) mmol/L Potassium (3.5-5.1) mmol/L Chloride (98-107) mmol/L Carbon Dioxide (21-32) mmol/L Anion Gap (3-11) BUN (7-18) mg/dl Creatinine (0.6-1.2) mg/dl Est Cr Clr Drug Dosing ml/min Est GFR ( Amer) Est GFR (Non-Af Amer) BUN/Creatinine Ratio (10-20) Glucose (70-99) mg/dl Estimat Average Glucose 117 mg/dl Hemoglobin A1c 5.7 H (4.5-5.6) % Calcium (8.5-10.1) mg/dl Albumin (3.4-5.0) gm/dl Urine Color Yellow Urine Appearance Clear (Clear) Urine pH 6.0 (4.5-7.5) Ur Specific [place] 1.019 (1.000-1.030) Urine Protein Negative (Negative) Urine Glucose (UA) Negative (Negative) Urine Ketones Negative (Negative) Urine Blood Negative (Negative) Urine Nitrite Negative (Negative) Urine Bilirubin Negative (Negative) Urine Urobilinogen Negative (Negative) Ur Leukocyte Esterase Trace H (Negative) Urine WBC (Auto) 1-5 (0-5) /hpf Urine RBC (Auto) 0-4 (0-4) /hpf U Hyaline Cast (Auto) 1-5 (0-5) /lpf U Epithel Cells (Auto) 10-20 H (0-5) /lpf Urine Bacteria (Auto) Negative (Negative) Blood Type O Positive Antibody Screen NEGATIVE 04/21/19 04/21/19 Range/Units 05:50 05:50 WBC 12.80 H (4.8-10.8) K/uL RBC 3.66 L (4.2-5.4) M/uL Hgb 11.2 L (12.0-16.0) g/dL Hct 33.5 L (37-47) % MCV 91.5 (80-100) fL MCH 30.6 (25-34) pg MCHC 33.4 (32-36) g/dL RDW Std Deviation 44.1 (36.4-46.3) fL RDW Coeff of Berenice 13.2 (11.5-14.5) % Plt Count 181 (130-400) K/uL MPV 9.7 (7.4-10.4) fL Immature Gran % (Auto) % Neut % (Auto) % Lymph % (Auto) % [place] % (Auto) % Eos % (Auto) % Baso % (Auto) % Immature Gran # (Auto) (0.00-0.02) K/uL Neut # (Auto) (1.4-6.5) K/uL Lymph # (Auto) (1.2-3.4) K/uL [place] # (Auto) (0.11-0.59) K/uL Eos # (Auto) (0-0.5) K/uL Baso # (Auto) (0-0.2) K/uL PT (9.0-12.0) Seconds INR (0.9-1.1) APTT (21.0-31.0) Seconds PTT Ratio Sodium 141 (136-145) mmol/L Potassium 3.9 (3.5-5.1) mmol/L Chloride 108 H (98-107) mmol/L Carbon Dioxide 25 (21-32) mmol/L Anion Gap 8.0 (3-11) BUN 17 (7-18) mg/dl Creatinine 1.09 (0.6-1.2) mg/dl Est Cr Clr Drug Dosing 52.0 ml/min Est GFR ( Amer) 58.3 Est GFR (Non-Af Amer) 50.3 BUN/Creatinine Ratio 15.7 (10-20) Glucose 128 H (70-99) mg/dl Estimat Average Glucose mg/dl Hemoglobin A1c (4.5-5.6) % Calcium 8.8 (8.5-10.1) mg/dl Albumin (3.4-5.0) gm/dl Urine Color Urine Appearance (Clear) Urine pH (4.5-7.5) Ur Specific [place] (1.000-1.030) Urine Protein (Negative) Urine Glucose (UA) (Negative) Urine Ketones (Negative) Urine Blood (Negative) Urine Nitrite (Negative) Urine Bilirubin (Negative) Urine Urobilinogen (Negative) Ur Leukocyte Esterase (Negative) Urine WBC (Auto) (0-5) /hpf Urine RBC (Auto) (0-4) /hpf U Hyaline Cast (Auto) (0-5) /lpf U Epithel Cells (Auto) (0-5) /lpf Urine Bacteria (Auto) (Negative) Blood Type Antibody Screen Total Time Total Time Spent Total Time Spent (In Minutes): 20 Discharge Plan Discharge Items Patient Disposition: Home - Self-Care Reason For Visit: Osteoarthritis, Right Knee Discharge Diagnosis: right knee osteoarthritis Discharge Goals: Decrease discomfort and Improve function Activity: Per 'Additional Instructions' section Weightbearing: Right weightbearing Weightbearing Comment: as tolerated Non-emergency contact: Surgeon Call non-emergency contact if: your pain is not controlled, your pain is worsening and your temperature is above 101.5 Follow-up/Referrals: Sudhir Henderson D.O. [Primary Care Provider] - Diet: Regular Addtl Provider Instructions: ACTIVITY RECOMMENDATIONS: SELF CARE INSTRUCTIONS AFTER TOTAL KNEE REPLACEMENT A. You may need to continue a physical therapy program after discharge from the hospital. There are several options available to you. Your doctor will assist you in selecting the best one for you. 1. An out-patient facility 3 times a week for therapy. 2. Home therapy for 1 to 2 weeks with outpatient therapy to follow. 3. Continue working on all exercises taught by physical therapy three times a day for 20 minutes on non-therapy days. Your goals should be to increase the bending of your knee to 90 degrees and beyond and to fully straighten your knee. Ice and elevate knee after exercise. B. Weight as tolerated with a walker or as instructed by your physician. C. It is okay to shower if minimal to no drainage from incision. No Baths. Do not soak wound. D. Make walking a part of your daily routine. Be up as much as comfortable with rest periods throughout the day. Rest with leg elevation is very important. Use the ice wrap frequently for the first 3-4 weeks. E. There are no restrictions on activities. You may ride in a car, shop, participate in buckle sewer machine and all social activities. F. Wear the long elastic stockings (JYOTI hose) 20 hours a day for one month after surgery. They can be removed several times a day for laundering and when showering. G. AGUSTINA dressing: You have a AGUSTINA dressing on your surgical wound. It will remain in place for 7 days from surgery. You will be provided with a booklet with the do's and don'ts with the dressing in place. After 7 days, the dressing may be removed. If there is drainage from the surgical incision, you may cover the wound with dry dressings SPECIAL CARE INSTRUCTIONS: VERY IMPORTANT TO READ AND REVIEW A. Take Aspirin (blood thinning medications) as directed by your doctor. If on Coumadin, have a pro-time (blood test) drawn according to your doctor's instructions. This will tell the doctor how well the Coumadin is thinning your blood. B. There are a few signs you need to watch for after you are home. Call [facility] if you notice any of the followin. Increased severe knee pain. Some pain is expected especially when you exercise. 2. Increased swelling in your leg or knee; pain or swelling of the calf muscle in either lower leg. 3. Any redness or fluid drainage from the incision. 4. Shortness of breath or chest pain. 5. A Temperature of 101.5 degrees F or greater. C. Please call [facility] at if you have any concerns or questions about your operation or recovery. The doctor or his nurse will return your call promptly. D. You must take antibiotics before dental work, bladder, bowel or other surgery. Your doctor will provide you with a permanent care to carry describing this precaution. FOLLOW UP VISIT: If appointment is not already scheduled: Please call [facility] to make a follow-up appointment for 2 weeks after your surgery at . Prescriptions: New acetaminophen [Tylenol Extra Strength] 500 mg Tablet 1,000 mg PO Q8 Qty: 120 RF: 0 aspirin [Ecotrin Low Strength] 81 mg Tablet,Delayed Release (Dr/Ec) 81 mg PO BID Qty: 60 RF: 0 celecoxib [Celebrex] 200 mg Capsule 200 mg PO BID Qty: 60 RF: 0 oxycodone 5 mg Tablet 5 - 10 mg PO Q4H PRN (Reason: pain) Qty: 30 RF: 0 Continued multivitamin Tablet 0.5 tab PO BID RF: 0 pravastatin 40 mg Tablet 40 mg PO HS RF: 0 valsartan-hydrochlorothiazide [Diovan HCT] 160-12.5 mg Tablet 1 tab PO QAM RF: 0 omega [id number] oil [Fish Oil] 1,000 mg (120 mg-180 mg) Capsule 1 cap PO QAM RF: 0 Discontinued aspirin [Aspir-81] 81 mg Tablet,Delayed Release (Dr/Ec) 81 mg PO QPM RF: 0 Stand-Alone Forms: [facility] Trigemina, Opioid Pain Management [facility]/Other Patient Handouts: Eat Healthy Discharge Orders: Discharge Order (Routine); Ordered 04/22/19 Ordered By: Joce White Admission Data Admit Date/Time: 04/20/19 12:06 Attending Provider: Farhan Russo Admit Provider: Farhan Russo Primary Care Provider: Sudhir Henderson Service: Surgical Services Other Interventions: Discharge Summary Assessment (RN) Last Done: 04/22/19 09:11 DC Date/Time DO NOT enter until pt leaves facility: 04/22/19 11:46
== END 2019-04-22 11:46 | disposition home or self-care (01) | DRG 470 ==
LOC: ASU 06:33 → 3E 12:06